=== PATIENT | female | born 1955 | race Caucasian/White ===

== ENCOUNTER 2021-07-27 06:05 | Day surgery (SDC) | payer BC, OTHER ==
[~2021-07-27] VITALS: Ht 180.3 cm; Wt 128.4 kg
[~2021-07-27 06:05] MED LIST: ACET325 PO; ASPI325 PO; Aspirin EC325 MG PO; CHOL10002 PO; Crestor20 MG PO; GAVILAX17 GM PO; GLIP2.5ER PO; INSULANPEN SC; LISI20 PO; Metformin HCl1000 MG PO; NORVASC2.5 MG PO; OXYACE5T PO; OXYB5 PO; OXYC5 PO
--- NOTE | 2021-07-27 07:09 | NUR ---
Ambulatory in Day Surgery Surgical site prepped with 2% Chlorhexidine cloth wipe. History, Chart, Medications and Allergies reviewed before start of procedure.Lungs clear T/O to Auscultation. Patient confirms NPO status and agrees with scheduled surgery. Pre-Op teaching done. Pt verbalizes understanding. Patient States Post-Procedure ride home has been arranged. Patient reports completing Chlorhexadine shower X2 prior to admission to hospital.
--- NOTE | 2021-07-27 11:48 | NUR ---
PT. TO ROOM #218 FROM PACU. ALERT AND ORIENTED X 4. STATES NUMBNESS IS LEGS, THIGHS. DENIES PAIN. VSS, 99% SAT ON ROOM AIR. HAS TAKEN WATER AND JELLO, NO NAUSEA. BLOOD SUGAR 205MG/DL, HUMULIN R PER SLIDING SCALE. INSTRUCTED TO USE CALL LIGHT FOR ANY NEEDS, CONCERNS , COMPLAINTS.
--- NOTE | 2021-07-27 13:32 | NUR ---
PT. STATES SHE HAS FEELING IN BOTH LEGS BILAT. , DENIES PAIN. UP TO BATHROOM WITH FWW, GAIT BELT, AND STAND BY ASSIST. PATIENT DID VOID AND IS UP IN RECLINER CHAIR IN ROOM . POLAR PACK ON LEFT KNEE. CMS LLE INTACT. ATE LUNCH AND HAS CALL LIGHT IN REACH.
--- NOTE | 2021-07-27 18:15 | NUR ---
PATIENT FROM CHAIR TO BATHROOM USING FWW, STEADY. PATIENT VOID AND BACK TO BED. DID C/O "FOOD STUCK IN MY PIPE, WONT MOVE DOWN". SUGGESTED WALKING AND DRINKING FLUIDS. AFTER BATHROOM PT. SAID A LITTLE CAME UP AND "I FEEL BETTER". DENIES ANY NAUSEA. RESTING IN BED WITH CALL LIGHT IN REACH. ENCOURAGED TO CALL FOR ANY NEEDS, CONCERNS, COMPLAINTS AND WHEN SHE NEEDS TO GET UP. VERBALIZE UNDERSTANDING.
[2021-07-28 04:29] LABS: BASOPHILS ABSOLUTE AUTO 0.04 K/mm3 (0.00-0.23); BASOPHILS PERCENT AUTO 1 % (0-2); EOSINOPHILS ABSOLUTE AUTO 0.08 K/mm3 (0.00-0.68); EOSINOPHILS PERCENT AUTO 1 % (0-6); Hematocrit 27.7 % (33.0-51.0); Hemoglobin 8.9 g/dL (11.5-16.0); IMMATURE GRAN ABSOLUTE AUTO 0.02 K/mm3 (0.00-0.10); IMMATURE GRAN PERCENT AUTO 0 % (0-1); LYMPHOCYTES ABSOLUTE AUTO 1.52 K/mm3 (0.84-5.20); LYMPHOCYTES PERCENT AUTO 18 % (21-46); MONOCYTES ABSOLUTE AUTO 0.88 K/mm3 (0.16-1.47); MONOCYTES PERCENT AUTO 10 % (4-13); Mean Corpuscular HGB 29.1 pg (26.0-34.0); Mean Corpuscular HGB Conc 32.1 g/dL (31.5-36.5); Mean Corpuscular Volume 91 fL (80-100); Mean Platelet Volume 9.7 fL (9.1-12.4); NEUTROPHILS ABSOLUTE AUTO 5.99 K/mm3 (1.96-9.15); NEUTROPHILS PERCENT AUTO 70 % (41-73); Platelet Count 236 K/mm3 (150-400); RDW Standard Deviation 42.8 fL (35.1-46.3); Red Blood Cell Count 3.06 M/mm3 (3.80-5.20); White Blood Cell Count 8.53 K/mm3 (4.00-11.30)
--- NOTE | 2021-07-28 04:41 | NUR ---
KNIT TUBING DYER SUMMARY NO ACUTE CHANGES THIS SHIFT. PT AAOX4 AND PLEASANT. DENIES ANY SIGNIFICANT PAIN OF L KNEE, ABLE TO MOVE LEG AND TOES AND AMBULATE WITH ASSIST. SCHEDULED TORADOL AND TYLENOL PER EMAR. POLAR PACK ON LLE THROUGH THE NIGHT. VSS, WILL CONTINUE TO MONITOR.
[2021-07-28 04:50] LABS: Bun/Creatinine Ratio 18.8 (12.0-20.0); Calcium, Blood 8.8 mg/dL (8.5-10.1); Creatinine, Blood 1.28 mg/dL (0.40-1.00); Potassium, Blood 4.1 mmol/L (3.5-5.5)
[2021-07-28] MEDS ORDERED: Percocet 5-3251 EACH PO (08:15)
--- NOTE | 2021-07-28 11:00 | NUR ---
DISCHARGE: PACKET PRINTED AND PT EDUCATED. PT GIVEN SCRIPT AND EXTRA AQUACEL DRESSINGS. POLAR PAC SENT WITH PT. PT LEFT UNIT VIA WHEELCHAIR WITH THIS RN AT ABOUT 1045
--- NOTE | 2021-07-28 11:05 | NUR ---
PT LEFT PHONE CURRICULUM DEVELOPMENT MANAGER AND POLAR PAC CURRICULUM DEVELOPMENT MANAGER CORD IN ROOM AT DISCHARGE. LEFT A MESSAGE ON PT'S HOME PHONE TO CT SCAN TECH AT NURSES STATION.
--- NOTE | 2021-07-28 15:27 | NUR ---
07/28/21 1527 Pap,Adis D VERIFICATION: CORRECTION OF IMPLANTS
== END 2021-07-28 10:41 | disposition home or self-care (01) ==
LOC: ORSCMMR 06:05 → ORD 07:30 → SURS 11:00 → ORSCMMR 07-28 10:41
PROVIDERS: Orthopaedic Surgery
DX: M17.12 Unilateral primary osteoarthritis, left knee (principal); I10 Essential (primary) hypertension; E11.9 Type 2 diabetes mellitus without complications; N18.9 Chronic kidney disease, unspecified; Z79.899 Other long term (current) drug therapy
CPT/HCPCS: 27447; S2900; 36415; 73560-LT; 80048; 82947; 85025; 97110; 97116; 97162; A9270; C1776; J0171; J0690; J0735; J1100; J1815; J1885; J2250; J2405; J2704; J2795; J3010; J3370; J7050; J7120

== ENCOUNTER → 2021-10-14 | Outpatient (CLI) | payer BC, OTHER ==
[~2021-10-14] MED LIST changes: +Percocet 5-3251 EACH PO
[2021-10-14 17:27] LABS: Source, Urine Clean Catch
[2021-10-14 19:18] LABS: Appearance, Urine Clear (Clear); Bilirubin, Urine Neg (Neg); Blood, Urine Neg (Neg); Glucose Qualitative, Urine Neg (Neg); Ketones, Urine Neg (Neg); Leukocyte Esterase, Urine Neg (Neg); Nitrite, Urine Neg (Neg); Protein, Urine Neg (Neg); Specific Gravity, Urine 1.005 (1.003-1.022); Urobilinogen, Urine NORM (Normal)
[2021-10-14 19:25] LABS: Color, Urine Pale Yellow (P-Yellow)
== END | disposition home or self-care (01) ==
LOC: LAB SHORT 14:50
PROVIDERS: Internal Medicine Nephrology
DX: N18.2 Chronic kidney disease, stage 2 (mild) (principal); R80.9 Proteinuria, unspecified
CPT/HCPCS: 81003

== ENCOUNTER → 2022-02-18 | Outpatient (CLI) | payer BC, OTHER ==
[2022-02-19 12:56] LABS: Stool Occult Bld Immuno 1 Negative (NEGATIVE)
== END | disposition home or self-care (01) ==
LOC: LAB SHORT 15:15 → LAB 15:15
PROVIDERS: Family Medicine
DX: Z12.11 Encounter for screening for malignant neoplasm of colon (principal)
CPT/HCPCS: G0328

== ENCOUNTER 2023-02-07 13:21 | Day surgery (SDC) | payer BC, OTHER ==
[~2023-02-07] VITALS: Ht 177.8 cm; Wt 118.1 kg
[~2023-02-07 13:21] MED LIST changes: +FARXIGA5 MG PO
[2023-02-07 14:50] VITALS: BP 109/55
== END 2023-02-07 14:40 | disposition home or self-care (01) ==
LOC: ORSCSDS 13:21
PROVIDERS: Internal Medicine Gastroenterology
PROC: 0DBH8ZX Excision of Cecum, Via Natural or Artificial Opening Endoscopic, Diagnostic (ICD-10-PCS; principal; 2023-02-07 14:45)
DX: Z12.11 Encounter for screening for malignant neoplasm of colon (principal); Z86.010 Personal history of colon polyps; D12.0 Benign neoplasm of cecum; K64.8 Other hemorrhoids; I12.9 Hypertensive chronic kidney disease with stage 1 through stage 4 chronic kidney disease, or unspecified chronic kidney disease; G47.33 Obstructive sleep apnea (adult) (pediatric); E78.5 Hyperlipidemia, unspecified; E11.22 Type 2 diabetes mellitus with diabetic chronic kidney disease; N18.9 Chronic kidney disease, unspecified; E66.9 Obesity, unspecified; Z68.41 Body mass index [BMI] 40.0-44.9, adult; Z79.899 Other long term (current) drug therapy
CPT/HCPCS: 82947; 88305; J2704; J7120

== ENCOUNTER 2023-03-03 17:30 | Emergency (ER) | payer BC, OTHER ==
[~2023-03-03] VITALS: Ht 165.1 cm; Wt 90.7 kg
[2023-03-03] MEDS ORDERED: CONSTULOSE10 GM/155 PO (23:02)
[2023-03-03] MEDS ORDERED: CITRATE OF MAG296 M1 PO (23:02)
[2023-03-03 23:30] VITALS: BP 143/69
== END 2023-03-03 23:32 | disposition home or self-care (01) ==
LOC: ER 17:30
DX: K59.00 Constipation, unspecified (principal); R11.2 Nausea with vomiting, unspecified; Z91.018 Allergy to other foods; Z79.899 Other long term (current) drug therapy; Z79.84 Long term (current) use of oral hypoglycemic drugs; Z79.82 Long term (current) use of aspirin; E11.9 Type 2 diabetes mellitus without complications; I10 Essential (primary) hypertension
CPT/HCPCS: 74022; 99283-25; A9270

== ENCOUNTER → 2023-05-15 | Outpatient (CLI) | payer OTHER ==
[~2023-05-15] MED LIST changes: +CITRATE OF MAG296 M1 PO; +CONSTULOSE10 GM/155 PO
== END ==
LOC: LAB SHORT 15:40 → LAB 15:40
DX: R30.0 Dysuria (principal)
CPT/HCPCS: 87077; 87086; 87186

== ENCOUNTER 2024-09-15 08:19 | Emergency (ER) | payer OTHER ==
[~2024-09-15] VITALS: Ht 177.8 cm; Wt 113.4 kg
[~2024-09-15 08:19] MED LIST changes: +Crestor40 MG PO; +OZEMPIC0.25 MG/02 SQ
[2024-09-15 08:38] VITALS: BP 146/111
== END 2024-09-15 10:24 | disposition home or self-care (01) ==
LOC: ER 08:19
DX: M25.532 Pain in left wrist (principal); E11.9 Type 2 diabetes mellitus without complications; I10 Essential (primary) hypertension; Z91.018 Allergy to other foods; Z79.899 Other long term (current) drug therapy
CPT/HCPCS: 29125; 73110; 99283-25

== ENCOUNTER 2025-02-15 19:35 | Inpatient (IN) | payer OTHER ==
[~2025-02-15] VITALS: Ht 167.6 cm; Wt 117.0 kg
[2025-02-15] MEDS ORDERED: Ipratropium/Albuterol SulF 2.5-0.5MG/3 ML Amp INH PRN (19:40)
[2025-02-15 19:51] LABS: BASOPHILS ABSOLUTE AUTO 0.05 K/mm3 (0.00-0.23); BASOPHILS PERCENT AUTO 1 % (0-2); EOSINOPHILS ABSOLUTE AUTO 0.16 K/mm3 (0.00-0.68); EOSINOPHILS PERCENT AUTO 3 % (0-6); Hematocrit 36.8 % (33.0-51.0); Hemoglobin 11.9 g/dL (11.5-16.0); IMMATURE GRAN ABSOLUTE AUTO 0.00 K/mm3 (0.00-0.10); IMMATURE GRAN PERCENT AUTO 0 % (0-1); LYMPHOCYTES ABSOLUTE AUTO 2.46 K/mm3 (0.84-5.20); LYMPHOCYTES PERCENT AUTO 41 % (21-46); MONOCYTES ABSOLUTE AUTO 0.74 K/mm3 (0.16-1.47); MONOCYTES PERCENT AUTO 12 % (4-13); Mean Corpuscular HGB Conc 32.3 g/dL (31.5-36.5); Mean Corpuscular Volume 91 fL (80-100); NEUTROPHILS ABSOLUTE AUTO 2.64 K/mm3 (1.96-9.15); NEUTROPHILS PERCENT AUTO 44 % (41-73); NRBC ABSOLUTE 0.00 K/mm3 (0.00-0.02); NRBC Auto 0.0 /100 WBC (0.0-0.2); Platelet Count 268 K/mm3 (150-400); RDW Coefficient Variation 12.9 % (11.7-14.2); RDW Standard Deviation 43.0 fL (35.1-46.3)
[2025-02-15 20:09] LABS: Alanine Aminotransfer (ALT/SGP 23.0 U/L (12-78); Albumin, Blood 4.1 g/dL (3.4-5.0); Albumin/Globulin Ratio 1.2 (0.8-1.8); Anion Gap 8.0 mmol/L (3-11); Aspartate Aminotrans (AST/SGOT 20.0 U/L (12-37); Bilirubin, Total 0.2 mg/dL (0.1-1.0); Blood Urea Nitrogen 33.0 mg/dL (8-24); CO2, Blood 23.0 mmol/L (21-32); Calcium, Blood 9.0 mg/dL (8.5-10.1); Chloride, Blood 113.0 mmol/L (98-108); Creatinine, Blood 2.26 mg/dL (0.40-1.00); Globulin, Blood 3.3 g/dL (2.2-4.0); Glucose, Blood 98.0 mg/dL (70-99); Potassium, Blood 4.2 mmol/L (3.5-5.5); Sodium, Blood 140.0 mmol/L (136-145); Total Protein, Blood 7.4 g/dL (6.4-8.2)
[2025-02-15] MEDS ORDERED: NS 1,000 ML IV SCH (22:40)
[2025-02-15 23:25] LABS: Source, Urine Clean Catch
[2025-02-15 23:29] LABS: Glucose Qualitative, Urine 3+ (Neg); Ketones, Urine Neg (Neg); Leukocyte Esterase, Urine 2+ (Neg); Protein, Urine 2+ (Neg); Specific Gravity, Urine 1.020 (1.003-1.022); Urobilinogen, Urine NORM (Normal)
[2025-02-15 23:38] LABS: Bilirubin, Urine 1+ (Neg); Color, Urine Yellow (P-Yellow)
[2025-02-15 23:40] LABS: Red Blood Cells, Urine 0-2 /hpf (0-2)
[2025-02-16] MEDS ORDERED: NS 1,000 ML IV SCH (00:28)
[2025-02-16] MEDS ORDERED: TRAM50 PO (01:14)
[2025-02-16] MEDS ORDERED: ZOLP6.25 PO (01:14)
[2025-02-16] MEDS ORDERED: GABA300 PO ×3 (01:17→02:37)
[2025-02-16 01:20] VITALS: BP 143/70
[2025-02-16] MEDS ORDERED: METF500 PO (01:20)
[2025-02-16] MEDS ORDERED: OMEP20ER PO (02:40)
[2025-02-16 03:43] VITALS: BP 126/61
[2025-02-16] MEDS ORDERED: Miconazole Nitrate 2% 85 GM PWD TOP PRN (03:55)
[2025-02-16 06:21] LABS: BASOPHILS ABSOLUTE AUTO 0.05 K/mm3 (0.00-0.23); BASOPHILS PERCENT AUTO 1 % (0-2); EOSINOPHILS ABSOLUTE AUTO 0.21 K/mm3 (0.00-0.68); EOSINOPHILS PERCENT AUTO 4 % (0-6); Hematocrit 34.6 % (33.0-51.0); Hemoglobin 11.1 g/dL (11.5-16.0); IMMATURE GRAN ABSOLUTE AUTO 0.02 K/mm3 (0.00-0.10); IMMATURE GRAN PERCENT AUTO 0 % (0-1); LYMPHOCYTES ABSOLUTE AUTO 1.92 K/mm3 (0.84-5.20); LYMPHOCYTES PERCENT AUTO 35 % (21-46); MONOCYTES ABSOLUTE AUTO 0.53 K/mm3 (0.16-1.47); MONOCYTES PERCENT AUTO 10 % (4-13); Mean Corpuscular HGB Conc 32.1 g/dL (31.5-36.5); Mean Corpuscular Volume 92 fL (80-100); NEUTROPHILS ABSOLUTE AUTO 2.71 K/mm3 (1.96-9.15); NEUTROPHILS PERCENT AUTO 50 % (41-73); NRBC ABSOLUTE 0.00 K/mm3 (0.00-0.02); NRBC Auto 0.0 /100 WBC (0.0-0.2); Platelet Count 232 K/mm3 (150-400); RDW Coefficient Variation 12.8 % (11.7-14.2); RDW Standard Deviation 43.3 fL (35.1-46.3)
--- NOTE | 2025-02-16 06:33 | NUR ---
T/F AND SUMMARY: REPORT RECEIVED FROM SARAH (PARALEGAL) AND PT T/F TO ROOM 303 VIA W/C AT 0115. PT A/OX4 AND WAS ORIENTED TO ROOM AND CALL SYSTEM. SHE'S INDEPENDENT AND AWARE OF LIMITATIONS, CALLING FOR ASSIST PRN. NS COMMENCED AT 100 ML/HR PER EMAR AND SHE'S VOIDING WELL W/O DIFFICULTY OR S/S RETENTION. PVR BLADDER SCAN <30 MLS. SCD'S INTACT AND PT REPOSITIONS SELF IN BED AD NANCY. NO COMPLAINTS OR CONCERNS EXPRESSED. VSS/AFEBRILE, NO ACUTE CHANGES. RENAL/BLADDER U/S PLANNED TODAY. WILL REPORT TO DAY RN.
[2025-02-16 06:39] LABS: Anion Gap 8.0 mmol/L (3-11); Blood Urea Nitrogen 31.0 mg/dL (8-24); CO2, Blood 23.0 mmol/L (21-32); Calcium, Blood 8.4 mg/dL (8.5-10.1); Chloride, Blood 114.0 mmol/L (98-108); Creatinine, Blood 1.81 mg/dL (0.40-1.00); Glucose, Blood 88.0 mg/dL (70-99); Potassium, Blood 4.0 mmol/L (3.5-5.5); Sodium, Blood 141.0 mmol/L (136-145)
[2025-02-16] MEDS ORDERED: Insulin Human Lispro 100 Units/ML 3ML Syringe SC SCH (07:30)
[2025-02-16 08:02] VITALS: BP 121/67
--- NOTE | 2025-02-16 15:52 | NUR ---
SUMMARY DR. CAICEDO ROUNDED THIS AM AND STATED SHE WANTED PT TO CONTINUE IV FLUIDS FOR 1 MORE BAG AT 100/ML/HR THEN DC. REPEAT LABS IN AM. PENDING URINE CX RESULTS. PT GETTING UP AND AMBULATING INDEPENDENTLY. URINATING FINE. PLACED HAT ON TOILET TO MEASURE OUTPUT. BLADDER SCAN COMPLETED NOT LONG AFTER VOIDING AND WAS 147. HOME MEDS REVIEWED AND RESTARTED BY DR. CAICEDO.
[2025-02-16 16:01] VITALS: BP 137/71
[2025-02-16 19:47] VITALS: BP 124/56
[2025-02-17 04:25] VITALS: BP 137/75
[2025-02-17 05:10] LABS: Anion Gap 8.0 mmol/L (3-11); Blood Urea Nitrogen 21.0 mg/dL (8-24); CO2, Blood 23.0 mmol/L (21-32); Calcium, Blood 8.6 mg/dL (8.5-10.1); Chloride, Blood 113.0 mmol/L (98-108); Creatinine, Blood 1.48 mg/dL (0.40-1.00); Glucose, Blood 95.0 mg/dL (70-99); Potassium, Blood 4.2 mmol/L (3.5-5.5); Sodium, Blood 140.0 mmol/L (136-145)
--- NOTE | 2025-02-17 06:41 | NUR ---
SUMMARY; Pt A&O x4, pleasant and cooperative w/care and independent in room. IV NS D/C per provider order after NS bag finished. Patient medicated per emr. Pt voided regularly throughout night w/bladder scan performed per orders and 222 mL pvr observed after voiding 518 ml of urine. Denies s/s retention and will continue to monitor. No acute changes. VSS, afibrile. Will notify oncoming RN at shift change.
[2025-02-17 08:02] VITALS: BP 133/70
[2025-02-17 14:35] LABS: Anion Gap 6.0 mmol/L (3-11); Blood Urea Nitrogen 18.0 mg/dL (8-24); CO2, Blood 26.0 mmol/L (21-32); Calcium, Blood 9.1 mg/dL (8.5-10.1); Chloride, Blood 112.0 mmol/L (98-108); Creatinine, Blood 1.48 mg/dL (0.40-1.00); Glucose, Blood 156.0 mg/dL (70-99); Potassium, Blood 4.2 mmol/L (3.5-5.5); Sodium, Blood 140.0 mmol/L (136-145)
[2025-02-17 15:51] VITALS: BP 134/76
[2025-02-17] MEDS ORDERED: TAMS.4ER PO (18:02)
--- NOTE | 2025-02-17 18:34 | NUR ---
DISCHARGE NOTE PT EDUCATED ON DISCHARGE PACKET AND NEW PRESCRIPTION. IV REMOVED. FRIEND PICKED UP. PT DENIED WHEELCHIAR ESCORT DOWN. TO FOLLOW UP WITH PCP WITHIN TWO WEEKS. NO NEW QUESTIONS OR CONCERNS PRIOR TO DC. BELONGINGS GATHERED AND RETURNED.
== END 2025-02-17 18:22 | disposition home or self-care (01) | DRG 684 ==
LOC: ER 19:35 → MEDS 19:36 → ER 19:36 → MEDS 02-16 01:16 → ENPENDDIS 02-17 18:02 → MEDS 02-17 18:22
PROVIDERS: Emergency Medicine; Family Medicine; Hospitalist; ADMIT Internal Medicine
DX: N17.9 Acute kidney failure, unspecified (principal); I12.9 Hypertensive chronic kidney disease with stage 1 through stage 4 chronic kidney disease, or unspecified chronic kidney disease; E11.22 Type 2 diabetes mellitus with diabetic chronic kidney disease; N20.0 Calculus of kidney; N18.31 Chronic kidney disease, stage 3a; Z79.84 Long term (current) use of oral hypoglycemic drugs; Z79.85 Long-term (current) use of injectable non-insulin antidiabetic drugs; Z98.84 Bariatric surgery status
CPT/HCPCS: 36415; 71046; 76770; 80048; 80053; 81001; 82947; 83880; 84484; 85025; 87077; 87086; 87186; 93005; 93010; 96360; 96361; 99285-25; A9270; G0378; J7030; J7120